=== PATIENT | male | born 1995 | race Caucasian/White ===

== ENCOUNTER 2017-07-14 17:34 | Emergency (ER) | payer SELFPAY ==
[~2017-07-14] VITALS: Ht 180.3 cm; Wt 79.0 kg
[2017-07-14 17:51] VITALS: BP 108/70
== END 2017-07-14 18:50 | disposition left against medical advice (07) ==
LOC: EME 17:34
DX: M79.1 Myalgia (principal); Z53.21 Procedure and treatment not carried out due to patient leaving prior to being seen by health care provider